=== PATIENT | male | born 1990 | race Two or more races ===

== ENCOUNTER 2021-09-25 01:41 | Emergency (ER) | payer OTHER ==
[~2021-09-25] VITALS: Ht 182.9 cm; Wt 175.0 kg
--- NOTE | 2021-09-25 05:22 | NUR ---
Ingrid ro in [facility] - 09/25/21 at 0523 by VIRGIL RT nima quispe
[2021-09-25 05:57] VITALS: BP 134/71
== END 2021-09-25 06:02 | disposition home or self-care (01) ==
LOC: ER 01:43
DX: R07.89 Other chest pain (principal); R51.9 Headache, unspecified
CPT/HCPCS: 36415; 71045; 74018; 84484; 93005; 99285